=== PATIENT | female | born 1985 | race Caucasian/White ===

== ENCOUNTER → 2018-08-20 | Outpatient (CLI) | payer OTHER ==
[2018-08-20 13:14] LABS: BASO % 0.3 % (0.0-1.0); EOS # 0.1 10^3/uL (0.0-0.50); EOS % 1.5 % (0.0-3.0); HEMATOCRIT 37.8 % (36.0-47.0); HEMOGLOBIN 12.8 g/dl (12.0-15.5); IMMATURE GRANULOCYTE % 0.1 % (0-3.0); LYMPH # 2.3 10^3/uL (1.5-4.5); LYMPH % 31.9 % (24.0-44.0); MEAN CORPUSCULAR HEMOGLOBIN 30.9 pg (27.0-33.0); MEAN CORPUSCULAR HGB CONC 33.9 g/dl (32.0-36.5); MEAN CORPUSCULAR VOLUME 91.3 fl (80.0-96.0); MONO # 0.4 10^3/uL (0.0-0.8); MONO % 5.7 % (0.0-5.0); NEUTROPHILS # 4.4 10^3/uL (1.8-7.7); NEUTROPHILS % 60.5 % (36.0-66.0); PLATELET COUNT, AUTOMATED 277 10^3/uL (150-450); RED BLOOD COUNT 4.14 10^6/uL (4.00-5.40); RED CELL DISTRIBUTION WIDTH 11.9 % (11.5-14.5); WHITE BLOOD COUNT 7.3 10^3/uL (4.0-10.0)
[2018-08-20 14:30] LABS: HBsAg Prenatal NEGATIVE (NEGATIVE); HIV 1&2 SCREEN CENTAUR NEGATIVE (NEGATIVE); RUBELLA IgG QUALITATIVE IMMUNE (IMMUNE)
[2018-08-20 14:31] LABS: HEPATITIS C VIRUS ABY INDEX 8.7 INDEX (<0.8)
[2018-08-20 15:02] LABS: CHLAMYDIA DNA AMPLIFICATION NEGATIVE (NEGATIVE); GC DNA AMPLIFICATION NEGATIVE (NEGATIVE)
[2018-08-25 00:07] LABS: HCV RNA NAA QUALITATIVE Negative (Negative)
== END ==
LOC: M SMT 09:01
DX: Z36.89 Encounter for other specified antenatal screening (principal); Z3A.12 12 weeks gestation of pregnancy
CPT/HCPCS: 86762

== ENCOUNTER → 2018-08-26 | Outpatient (CLI) | payer OTHER | LOC: M WHC 09:01 | DX: Z36.89 Encounter for other specified antenatal screening (principal); Z3A.14 14 weeks gestation of pregnancy | CPT/HCPCS: 76811 ==

== ENCOUNTER → 2018-08-26 | Outpatient (CLI) | payer OTHER ==
[2018-08-26 14:21] LABS: ALBUMIN 3.1 GM/DL (3.2-5.2); ALBUMIN/GLOBULIN RATIO 0.91 (1.00-1.93); ALKALINE PHOSPHATASE 41 U/L (45-117); ALT/SGPT 13 U/L (12-78); ANION GAP 6 MEQ/L (8-16); AST/SGOT 6 U/L (7-37); BILIRUBIN,TOTAL 0.3 MG/DL (0.2-1.0); BLOOD UREA NITROGEN 10 MG/DL (7-18); CALCIUM LEVEL 8.4 MG/DL (8.5-10.1); CARBON DIOXIDE LEVEL 29 MEQ/L (21-32); CHLORIDE LEVEL 105 MEQ/L (98-107); CREATININE FOR GFR 0.53 MG/DL (0.55-1.30); GLOMERULAR FILTRATION RATE > 60.0 (>60); GLUCOSE, FASTING 67 MG/DL (70-100); POTASSIUM SERUM 4.7 MEQ/L (3.5-5.1); SODIUM LEVEL 140 MEQ/L (136-145); TOTAL PROTEIN 6.5 GM/DL (6.4-8.2)
[2018-08-27 09:49] LABS: HEPATITIS B SURFACE ANTIBODY POSITIVE (POSITIVE)
[2018-08-31 14:07] LABS: ALPHA 2-MACROGLOBULIN 266 mg/dL (110-276); ALT 8 IU/L (0-40); APOLIPOPROTEIN A-1 222 mg/dL (116-209); FIBROSIS SCORE 0.03 (0.00-0.21); GGT 5 IU/L (0-60); HAPTOGLOBIN 88 mg/dL (34-200); HEPATITIS A IgG TOTAL Positive (Negative); HEPATITIS B CORE ANTIBODY IGG Negative (Negative); NECROINFLAM SCORE 0.01 (0.00-0.17); NECROINFLAMM GRADE A0-No activity (.); TOTAL BILIRUBIN 0.2 mg/dL (0.0-1.2)
== END ==
LOC: M SMT 08:29
DX: O98.419 Viral hepatitis complicating pregnancy, unspecified trimester (principal)
CPT/HCPCS: 82977

== ENCOUNTER → 2018-09-19 | Outpatient (REF) | payer OTHER ==
[2018-09-23 15:15] LABS: HPV HYBRID CAPTURE II Negative (Negative)
== END ==
LOC: M LAB REF 14:12
DX: Z12.4 Encounter for screening for malignant neoplasm of cervix (principal)

== ENCOUNTER → 2018-09-30 | Outpatient (CLI) | payer OTHER | LOC: M RAD 17:25 | DX: Z34.82 Encounter for supervision of other normal pregnancy, second trimester (principal); Z3A.18 18 weeks gestation of pregnancy | CPT/HCPCS: 76816 ==

== ENCOUNTER → 2018-10-28 | Outpatient (CLI) | payer OTHER ==
--- NOTE | 2018-10-29 07:20 | REP ---
Clinical: Anatomical evaluation. Comparison: 09/30/2018 . Findings: Examination demonstrates a single live intrauterine in breech presentation. motion is identified by technologist. Placenta is noted anterior and grade grade 1 without evidence for placenta previa or abruption. Amniotic fluid volume is normal. Cervix measures 4.4 cm in length and appears closed. No evidence for nuchal cord. Gestational age by LMP 22 weeks 5 days with KAREN 02/26/2019 . Gestational age by current measurements 22 weeks 6 days with KAREN 02/25/2019 . FHR equals 141 beats per minute. Estimated weight 606 grams ( 72nd percentile). Anatomical assessment demonstrates normal structures including choroid plexus, four-chamber heart/ventricular outflow tracts, kidneys, spine. Impression: Single live intrauterine in breech presentation demonstrating appropriate interval growth. In conjunction with prior examination anatomical assessment is complete and within normal limits. Electronically Signed by Jose Srivastava MD 10/29/2018 07:12 A
== END ==
LOC: M RAD 17:39
PROVIDERS: ATTEND Specialist
DX: O98.412 Viral hepatitis complicating pregnancy, second trimester (principal); O32.1XX0 Maternal care for breech presentation, not applicable or unspecified; Z3A.22 22 weeks gestation of pregnancy

== ENCOUNTER → 2018-12-29 | Outpatient (CLI) | payer OTHER ==
[2018-12-29 17:43] LABS: HEMATOCRIT 36.3 % (36.0-47.0); HEMOGLOBIN 12.2 g/dl (12.0-15.5); MEAN CORPUSCULAR HGB CONC 33.6 g/dl (32.0-36.5); MEAN CORPUSCULAR VOLUME 92.4 fl (80.0-96.0); PLATELET COUNT, AUTOMATED 253 10^3/uL (150-450); RED BLOOD COUNT 3.93 10^6/uL (4.00-5.40); WHITE BLOOD COUNT 10.2 10^3/uL (4.0-10.0)
== END ==
LOC: M SMT 14:37
PROVIDERS: ATTEND Advanced Practice Midwife
DX: Z36.89 Encounter for other specified antenatal screening (principal)

== ENCOUNTER → 2019-01-01 | Outpatient (CLI) | payer OTHER | LOC: M LAB 07:27 | PROVIDERS: ATTEND Pediatrics | DX: Z34.83 Encounter for supervision of other normal pregnancy, third trimester (principal) ==

== ENCOUNTER → 2019-01-27 | Outpatient (REF) | payer OTHER | LOC: M LAB REF 16:51 | PROVIDERS: ATTEND Advanced Practice Midwife | DX: O99.513 Diseases of the respiratory system complicating pregnancy, third trimester (principal); Z3A.00 Weeks of gestation of pregnancy not specified ==

== ENCOUNTER 2019-02-18 21:18 | Inpatient (IN) | payer OTHER ==
[~2019-02-18] VITALS: Ht 152.4 cm; Wt 78.1 kg
[2019-02-18 21:32] VITALS: BP 131/82
[2019-02-18 22:20] VITALS: BP 140/75
[2019-02-18 22:37] LABS: HEMATOCRIT 35.9 % (36.0-47.0); MEAN CORPUSCULAR HEMOGLOBIN 30.2 pg (27.0-33.0); MEAN CORPUSCULAR HGB CONC 33.4 g/dl (32.0-36.5); MEAN CORPUSCULAR VOLUME 90.2 fl (80.0-96.0); PLATELET COUNT, AUTOMATED 231 10^3/uL (150-450); RED BLOOD COUNT 3.98 10^6/uL (4.00-5.40); WHITE BLOOD COUNT 8.4 10^3/uL (4.0-10.0)
[2019-02-18] MEDS ORDERED: FENTANYL 2MCG/ML ROPIVACAINE 0.2% IN 0.9% NACL 100ML IVBAG As Ordered ONE (23:36)
[2019-02-18 23:52] VITALS: BP 139/83
[2019-02-18 23:59] VITALS: BP 124/81
[2019-02-19] VITALS (56 sets, daily range): BP systolic 93–163; BP diastolic 52–85
[2019-02-19] MEDS ORDERED: BUDESONIDE 180MCG INHALER (PULMICORT FLEXHALER) INH SCH (01:00)
[2019-02-19] MEDS ORDERED: OXYTOCIN DRIP 30 UNITS in APPROPRIATE DILUENT 1 EA IV SCH ×2 (01:00→20:30)
[2019-02-19] MEDS ORDERED: EPIDURAL/PCA KEYS XX PRN (01:15)
[2019-02-19] MEDS ORDERED: ePHEDrine SULFATE 25 MG/5 ML(5MG/ML) SYRINGE IV PRN (01:15)
[2019-02-19] MEDS ORDERED: LACTATED RINGER'S 1000 ML IV PRN (01:15)
[2019-02-19] MEDS ORDERED: REFRIGERATOR IV KEYS XX PRN (01:15)
[2019-02-19] MEDS ORDERED: NALOXONE INJ 0.4 MG/1 ML VIAL (J2310) IV PRN ×3 (01:15→19:18)
[2019-02-19] MEDS ORDERED: EPIDURAL COMMENT XX SCH (01:15)
[2019-02-19] MEDS: FENTANYL/ROPIVACAINE/NACL BAG 100 ML EPIDURAL SCH ×3 (01:15→17:21)
[2019-02-19] MEDS ORDERED: ONDANSETRON 4MG/2ML VIAL (J2405) IV PRN ×4 (01:15→20:30)
[2019-02-19] MEDS ORDERED: diphenhydrAMINE INJ 50MG/ML VIAL (J1200) IV PRN ×2 (01:15→19:18)
[2019-02-19] MEDS: LR 1,000 ML IV SCH ×4 (01:27→14:19)
--- NOTE | 2019-02-19 02:48 | NUR ---
PROGRESS NOTE S: Comfortable with epidural in place O: T98.6 F, P79,R 18, B/P106/57 FHR 135 with moderate variability, positive accelerations, no decelerations Contractions every 6 minutes. Pitocin at 4 mu/min SVE: deferred A: IUP at 39 weeks. FHR category I. P: Continue with IV pitocin for labor augmentation.
--- NOTE | 2019-02-19 06:48 | HPE ---
DATE OF ADMISSION: 02/18/2019 SUBJECTIVE: Effie is a 33-year-old 2, para 0-0-1-0 at 38-6/7 weeks gestation, estimated date of confinement (EDC) of 02/26/2019 based on last menstrual period and confirmed by first trimester ultrasound. She presents to labor and delivery today with a report of spontaneous rupture of membranes, clear odorless fluid at 1850 hours, with continued leakage. Following the rupture of membranes she reports contractions started and that they are about every 4-5 minutes. She does report some pink vaginal bleeding. The fetus has been active. Her care was initiated at [facility] in the first trimester. Her course was complicated by an initial positive hepatitis C that was noted to be a false positive. Her HCV, RNA, and AA qualitative is negative and there was no need for any iinfectious disease consult. PAST OBSTETRIC HISTORY: March 2016, 8 weeks, spontaneous miscarriage. OBSTETRIC LABS: O positive. Antibody screen negative. Rubella immune. VDRL nonreactive. Urine culture no growth. Hep B surface antigen negative. HIV negative. Hep C antibody nonreactive. Gonorrhea and chlamydia negative. She did not have genetic serum screening labs drawn. Gestational diabetes screening elevated at 153. Her 3 hour glucose tolerance test normal. Fasting 90, 1 hour 178, 2 hour 157 and 3 hour of 89. Her Group B Streptococcus (GBS) is negative. PAST MEDICAL HISTORY: Asthma. Ventolin inhaler as needed. HPV. Childhood varicella. SURGERIES: None. FAMILY HISTORY: Diabetes, heart disease, breast cancer. SOCIAL HISTORY: The patient is single however the father of the baby is at bedside. She is a nonsmoker. Denies alcohol and drug use. 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 ALLERGIES: No known drug allergies. CURRENT MEDICATIONS: - Ventolin inhaler as needed - Pulmicort inhaler on a regular basis. OBJECTIVE: Temperature 98.2, pulse 81, respirations 20, blood pressure is 131/82. She is alert and oriented times three. She does appear mildly uncomfortable with her contractions. heart rate is 140 with moderate variability, positive accelerations, no decelerations observed. Contractions are about every 3-6 minutes. They do palpate moderate. Her abdomen is gravid, cephalic presentation with an estimated weight of 7-1/2 pounds. Sterile spec exam: Positive Valsalva, positive pooling, positive Nitrazine and positive fern. Sterile vaginal exam 2 cm dilated, 90% effaced, -3 station, mid position, soft, positive scant bloody show. ASSESSMENT: Intrauterine at 38-6/7 weeks. heart rate category 1. Spontaneous rupture of membranes. Latent phase of labor. PLAN: Admit patient to labor and delivery. Routine labs. Saline lock. Out of bed ad doreen. Regular diet at this time. The patient will likely desire an epidural for her labor coping when she is more uncomfortable. Consider IV pitocin augmentation as needed. I did review all questions that the patient and her partner asked and I do anticipate continued labor progress and a spontaneous vaginal delivery. MTDD
--- NOTE | 2019-02-19 06:58 | NUR ---
PROGRESS NOTE S: Comfortable with epidural. Reports some increase in flatus and minimal rectal pressure O: B/P 131/85 FHR 140 with moderate variability, no accelerations, positive early decelerations Contractions are every 3-5 minutes. Pitocin at 8 mu/min SVE: deferred A: IUP at 39 weeks, FHR category I P: Continue to observe and IV pitocin augmentation. Anticipate .
--- NOTE | 2019-02-19 07:31 | NUR ---
PROGRESS NOTE SVE: 4/100/-1, molding noted. Reposition with peanut ball to encourage rotation. Pitocin at 8mu/min FHR 140 with moderate variability, no accels, positive early decelerations. Occasional variable deceleration Contractions every 2-4 minutes. Continue to observe
--- NOTE | 2019-02-19 11:57 | NUR ---
Progress Note Pt comfortable with epidural. Continuing to leak fluid. No VB. No SUAREZ, visual changes, RUQ pain, sob, cp, myalgias. Temp 101.0F, normotensive EFM: Cat I [place]: ctxs every 2-4 min; Pit at 10 mU/min A/P: IAI/Chorioamnionitis. Prolonged rupture of membranes. Reassuring status. -Start IV abx; Unasyn -Tylenol 1g PO -Repeat SVE in 2-4 hours Eva Oh DO
--- NOTE | 2019-02-19 12:11 | NUR ---
Addendum SVE: 6-7cm/100%/-1 Protracted labor thus far, despite active management Eva Oh DO
[2019-02-19] MEDS ORDERED: ACETAMINOPHEN 500 MG TAB PO ONE (12:15)
[2019-02-19] MEDS: AMPICILLIN SOD/SULBACTAM SOD 3 GM in D5W MINI-BAG PLUS 100 ML IV SCH ×2 (12:21→18:19)
--- NOTE | 2019-02-19 14:50 | NUR ---
Progress Note Pt feeling more lower pelvic pressure. VSS, Temp 100.4, normotensive SVE: 8/c/0 EFM: Cat I [employer]: ctxs every 3-5min A/P: Minimal cervical change. Reassuring maternal and status. -Repeat SVE in 2 hours. -Continue Marty Oh,
--- NOTE | 2019-02-19 17:58 | NUR ---
Progress Note Pt feeling more lower pelvic pressure. VSS, Temp 100.0, normotensive SVE: c/c/0 (see A/P) EFM: Cat I [place]: ctxs every 3-5min A/P: Second stage of labor. Reassuring maternal and status. -Maternal pushing efforts have started. Good effort, minimal descent. -Continue Pitocin and IV Unasyn Eva Oh, DO
[2019-02-19] MEDS ORDERED: OXYTOCIN INJ 10 UNITS/ML VIAL (J2590) As Ordered ONE ×3 (18:22→19:36)
[2019-02-19] MEDS ORDERED: ePHEDrine SULFATE 25 MG/5 ML(5MG/ML) SYRINGE As Ordered ONE (18:22)
[2019-02-19] MEDS ORDERED: PHENYLephrine HCL 500 MCG/5 ML (100MCG/ML) SYRINGE (J2370) As Ordered ONE (18:22)
[2019-02-19] MEDS ORDERED: LIDOCAINE PRES-FREE 2% 10ML AMP As Ordered ONE (18:22)
[2019-02-19] MEDS ORDERED: AZITHROMYCIN INJ 500MG VIAL (J0456) As Ordered ONE (18:24)
[2019-02-19] MEDS ORDERED: BICITRA 30ML SOLN UDC As Ordered ONE (18:25)
--- NOTE | 2019-02-19 18:25 | NUR ---
Progress Note SVE: c/c/0 Adequate maternal pushing effort without any descent of presenting verted FHR: Cat II. tachycardia with min to moderate variability, no decels. +accels IAI/Chorio. Arrest of descent / CPD. Non-reassuring heart rate tracing (Cat II). -Recommended PLTCS and patient agreed to proceed with this plan. -Preparations for the OR being made. Eva Oh, DO
[2019-02-19] MEDS ORDERED: BICITRA 30ML SOLN UDC PO ONE (18:30)
[2019-02-19] MEDS ORDERED: AZITHROMYCIN INJ 500 MG, VIAL MATE ADAPTER 1 EACH in D5W 250 ML IV ONE (18:30)
[2019-02-19] MEDS ORDERED: PROPOFOL 200 MG/20 ML VIAL As Ordered ONE ×2 (19:11→19:24)
[2019-02-19] MEDS ORDERED: MIDAZOLAM INJ 2 MG/2 ML VIAL (J2250) As Ordered ONE (19:11)
[2019-02-19] MEDS ORDERED: MORPHINE PRES-FREE INJ 10 MG/10 ML VIAL (J2274) As Ordered ONE (19:15)
[2019-02-19] MEDS ORDERED: NALBUPHINE HCL 10 MG/ML AMP (J2300) IV PRN (19:18)
[2019-02-19] MEDS ORDERED: METOCLOPRAMIDE INJ 10MG/2ML VIAL (J2765) IV PRN ×2 (19:18→20:30)
[2019-02-19 19:24] LABS: CORD GAS ABE A -5.1; CORD GAS HCO3 A 21.6 MEQ/L; CORD GAS O2 SAT A 27.6 %; CORD GAS PCO2 A 45.8 mmHg; CORD GAS PH A 7.291 UNITS; CORD GAS PO2 A 14.9 mmHg; CORD GAS SBC A 18.7 MEQ/L
[2019-02-19] MEDS ORDERED: ONDANSETRON 4MG/2ML VIAL (J2405) As Ordered ONE ×2 (19:24→20:10)
[2019-02-19 19:25] LABS: CORD GAS ABE V -1.4; CORD GAS HCO3 V 25.4 MEQ/L; CORD GAS O2 SAT V 46.4 %; CORD GAS PCO2 V 50.3 mmHg; CORD GAS PH V 7.321 UNITS; CORD GAS PO2 V 20.6 mmHg; CORD GAS TCO2 V 26.9 MEQ/L
--- NOTE | 2019-02-19 20:09 | NUR ---
Operative Note Date of procedure: 02/19/2019 Procedure: Primary low-transverse section Anesthesia: Epidural Preoperative diagnosis: 39+0 weeks gestation Prolonged rupture of membranes with intrauterine amniotic infection/chorioamnionitis Arrest of descent in the second stage of labor Category 2 heart rate tracing Postoperative diagnosis: Same as preoperative Indication: Arrest of descent in the second stage of labor Primary surgeon: Johny Oh D.O., Kenna Marquez Nylon Machine Operator: None Estimated blood loss: 700 ml IV fluids administered: 1600 ml crystalloid Drains: Loaiza catheter. Urine output: 150 ml [place] data: Apgars 9 and 9. Birthweight, 3284 g, 7 lbs. 4 oz. Female. Preoperative/prophylactic antibiotics: Ancef 2 g IV (given within 30 minutes prior to surgical start time). Intraoperative findings: Occiput posterior/asynclitic presentation. Normal uterus and bilateral adnexa/ovaries. Specimen(s): Placenta Procedure: The patient was counseled and consented on the risks, benefits, indications and alternatives of the procedure. Informed consent was obtained and placed in the c moss. She was taken to the operating room with an IV running. She was placed on the operating table. Epidural anesthesia was administered without any difficulty and found to be adequate. She was placed in the dorsal supine position with a leftward tilt. Sequential compression devices were placed on the lower extremities. A Loaiza catheter had been placed under sterile conditions prior to arrival to the operating room. She was sterilely prepped and draped. A surgical time out was performed per protocol. Epidural anesthesia was again found to be adequate. Using the 10 blade a Pfannenstiel incision was performed. The 10 blade was used to dissect down to the level of the rectus sheath fascia. The rectus sheath fas radha was incised at the midline, and the fascial incision was extended with Dominguez scissors. Angela clamps were used to grasp the superior and inferior aspect of the fascial incision and the rectus muscle bellies were dissected off sharply and bluntly. The midline was identified and the rectus muscle bellies were manually . The peritoneum was identified and clamped with hemostats and elevated. The peritoneum was then incised with Metzenbaum scissors. Entry into the intraperitoneal cavity was achieved. The peritoneal opening was extended with manual stretch . There was good visualization of both the bladder and the lower uterine segment. The Mobius retractor was placed. The vesicouterine peritoneum was dissected with Metzenbaum scissors and blunt dissection. A low transverse uterine incision was made with a new 10 blade. The hysterotomy was extended with manual stretch. The amniotic sac was protruding and then artificially ruptured. Clear amniotic fluid was noted. The baby's head delivered through the hysterotomy with ease. The remainder of the body delivered with ease. The cord was doubly clamped and cut and the baby was handed off to awaiting care. See data above. Cord blood was obtained.. Gases were obtained. The placenta was manually removed and noted to be fully intact. The uterus was kept in situ. The intrauterine cavity was cleared of all clot and debris with a laparotomy sponge. The hysterotomy was closed with 0 Vicryl in running, locked fashion. A second imbricating closure was performed over the initial layer closure using 0 Vicryl, The hysterotomy was noted to be hemostatic. The posterior cul-de-sac was irrigated and cleared of all clot and debris. The uterus was replaced back into the abdomen. The paracolic gutters were cleared of all clot and debris with damp laparotomy sponges. The hysterotomy is reinspected and noted to be hemostatic. Sponge, needle and instrument counts were correct. The peritoneum was closed with 3-0 Vicryl in running fashion. The rectus muscle bellies were reapproximated with 3-0 Vicryl with a series of interrupted sutures. The rectus muscle bellies were noted to be hemostatic. The fascia was closed with 0 Vicryl in running fashion. Sponge, needle and instrument counts were again correct. The subcutaneous layer was irrigated. Small subcutaneous bleeders were cauterized with Bovie. The subcutaneous layer was reapproximated with 3-0 Vicryl in running fashion. The skin was closed with 3-0 Monocryl in subcuticular fashion. A bandage was placed over the closed incision. The final sponge, instrument and needle count was correct. She tolerated the entire procedure very well. She was transferred to the PACU in good and stable condition. Dr. Johny Oh D.O., [email or web address]
[2019-02-19] MEDS ORDERED: fentaNYL 100 MCG/2 ML INJECTION (J3010) As Ordered ONE ×2 (20:10→20:46)
[2019-02-19] MEDS ORDERED: RHOGAM 300 MCG (1500 IU) INJ (J2790) IM SCH (20:15)
[2019-02-19] MEDS ORDERED: PROMETHAZINE 25 MG TAB PO PRN (20:15)
[2019-02-19] MEDS ORDERED: MEASLES,MUMPS,RUBELLA VACCINE INJ (MMR-II) (90707) SC SCH (20:15)
[2019-02-19] MEDS ORDERED: KETOROLAC 30 MG/ML VIAL (J1885) IV PRN (20:30)
[2019-02-19] MEDS ORDERED: fentaNYL 100 MCG/2 ML INJECTION (J3010) IV PRN (20:30)
[2019-02-19] MEDS ORDERED: PERCOCET 5MG/325MG TAB PO PRN (20:30)
[2019-02-19] MEDS: DOCUSATE SODIUM 100 MG CAP PO SCH (21:00)
[2019-02-19] MEDS ORDERED: KETOROLAC 30 MG/ML VIAL (J1885) As Ordered ONE (21:11)
[2019-02-19] MEDS: PERCOCET 5MG/325MG TAB PO PRN (23:25)
[2019-02-20] VITALS (7 sets, daily range): BP systolic 104–119; BP diastolic 54–71
[2019-02-20] MEDS: AMPICILLIN SOD/SULBACTAM SOD 3 GM in D5W MINI-BAG PLUS 100 ML IV SCH ×4 (01:15→18:52)
[2019-02-20] MEDS: KETOROLAC 30 MG/ML VIAL (J1885) IV SCH ×3 (03:17→15:08)
[2019-02-20] MEDS: PERCOCET 5MG/325MG TAB PO PRN ×4 (06:51→21:55)
--- NOTE | 2019-02-20 06:56 | NUR ---
POD#1 s/p PLTCS for arrest of descent also c/b IAI/chorio S: Pain well controlled, ambulating without difficulty, Loaiza recently removed, lochia decreasing/minimal, tolerating PO. Baby in NICU, doing well. O: VSS, normotensive, normal HR, afebrile H: RRR no m/g/r L: CTA b/l no w/c/r/r Abd: soft,nt,nd, uterine fundus firm at U-2cm and appropriately tender Incision bandage not soaked through Ext: no c/c/e; SCD's on preop h/h: 12.0/35.9 postop h/h: 10.1/30.2 A/P: POD#1. Recovering appropriately. HDS/afebrile/good pain control. -Routine postoperative/ care and advancement -Continue Unasyn 3g IV q6h until AM of POD#2. Eva Oh DO
[2019-02-20 07:39] LABS: HEMATOCRIT 30.2 % (36.0-47.0); HEMOGLOBIN 10.1 g/dl (12.0-15.5); MEAN CORPUSCULAR HEMOGLOBIN 30.8 pg (27.0-33.0); MEAN CORPUSCULAR HGB CONC 33.4 g/dl (32.0-36.5); MEAN CORPUSCULAR VOLUME 92.1 fl (80.0-96.0); PLATELET COUNT, AUTOMATED 188 10^3/uL (150-450); RED BLOOD COUNT 3.28 10^6/uL (4.00-5.40); WHITE BLOOD COUNT 11.1 10^3/uL (4.0-10.0)
[2019-02-20] MEDS ORDERED: OXYC1TAB23 PO (08:20)
[2019-02-20] MEDS ORDERED: IBUP80TA PO (08:22)
[2019-02-20] MEDS: DOCUSATE SODIUM 100 MG CAP PO SCH ×2 (09:00→21:54)
[2019-02-20] MEDS: PRENATAL VITAMINS CHEWABLE TABLET PO SCH (09:00)
[2019-02-20] MEDS: LR 1,000 ML IV SCH (12:30)
[2019-02-20] MEDS: IBUPROFEN 800 MG TAB PO SCH (23:10)
[2019-02-21] MEDS: AMPICILLIN SOD/SULBACTAM SOD 3 GM in D5W MINI-BAG PLUS 100 ML IV SCH ×2 (01:11→06:52)
[2019-02-21 02:00] VITALS: BP 112/65
[2019-02-21] MEDS: PERCOCET 5MG/325MG TAB PO PRN ×5 (03:58→22:37)
[2019-02-21 05:23] VITALS: BP 116/62
[2019-02-21] MEDS: IBUPROFEN 800 MG TAB PO SCH ×3 (06:51→22:36)
--- NOTE | 2019-02-21 07:00 | IPNPDOC ---
Text Note Date of Service The patient was seen on 02/21/19. NOTE PO #2 Feels well, adequate pain management. Voiding VSS, afebrile, normotensive Breasts soft, nipples intact Fundus firm, NT Dressing intact Lochia rubra scant without odor PO #2 Routine care. Anticipate D/C in am VS,Fishbone, I+O VS, Fishbone, I+O Laboratory Tests 02/20/19 07:05 Red Blood Count 3.28 L, Mean Corpuscular Volume 92.1, Mean Corpuscular Hemoglobin 30.8, Mean Corpuscular Hemoglobin Concent 33.4, Red Cell Distribution Width 12.5 Vital Signs Date Time Temp Pulse Resp B/P (MAP) Pulse Ox O2 Delivery O2 Flow Rate FiO2 02/21/19 05:23 98.1 86 16 116/62 (80) 02/20/19 10:05 100 I&O- Last 24 Hours up to 6 AM 02/21/19 06:00 Output Total 2025 ml Balance -2025 ml Leana Fu CNM Feb 21, 2019 07:00
[2019-02-21] MEDS: PRENATAL VITAMINS CHEWABLE TABLET PO SCH (08:47)
[2019-02-21] MEDS: DOCUSATE SODIUM 100 MG CAP PO SCH ×2 (08:47→21:35)
[2019-02-21 18:22] VITALS: BP 129/73
[2019-02-22] MEDS: PERCOCET 5MG/325MG TAB PO PRN (03:47)
[2019-02-22 06:00] VITALS: BP 123/65
[2019-02-22] MEDS: DOCUSATE SODIUM 100 MG CAP PO SCH (07:41)
[2019-02-22] MEDS: IBUPROFEN 800 MG TAB PO SCH (07:41)
[2019-02-22] MEDS: PRENATAL VITAMINS CHEWABLE TABLET PO SCH (07:41)
[2019-02-22] MEDS ORDERED: PRENTAB9 PO (11:49)
--- NOTE | 2019-02-23 07:40 | DSES ---
DATE OF ADMISSION: 02/18/2019 DATE OF DISCHARGE: 02/22/2019 33-year-old 2, para 2 female at 38-6/7 weeks gestation presents with spontaneous rupture of membranes. She began to contract every 4-5 minutes. She presented to the hospital course. HOSPITAL COURSE: The patient was admitted on 02/18/2019 for early labor with spontaneous rupture of membranes that were confirmed. She made slow progress in labor over the next day and a half. She was subsequently diagnosed with arrest of descent as well as tachycardia and possible chorioamnionitis. On 02/19/2019 she underwent a primary low transverse section by Dr. Oh for a 7 pound 4 ounce female infant. There were no complications. Postoperative course was unremarkable. She had adequate return of bladder and bowel function. Postoperative hemoglobin was 10.1 g/dL. The baby was observed in the intensive-care unit (NICU) for suspected chorioamnionitis, and the baby did very well. The patient was deemed stable for discharge on postop day number 3. ADMISSION DIAGNOSIS: at term, labor. DISCHARGE DIAGNOSIS: Delivered. PROCEDURE: Primary low transverse section. DISPOSITION: Patient will follow-up with Dr. Oh in two weeks. Instructions were reviewed.
== END 2019-02-22 12:00 | disposition home or self-care (01) | DRG 540 ==
LOC: M LDO 21:18 → M LDI 21:58 → M OBS 02-19 22:53
PROVIDERS: ADMIT Advanced Practice Midwife; ATTEND Advanced Practice Midwife
PROC: 10D00Z1 Extraction of Products of Conception, Low, Open Approach (ICD-10-PCS; principal; 2019-02-19 18:58)
DX: O41.1230 Chorioamnionitis, third trimester, not applicable or unspecified (principal); O64.0XX0 Obstructed labor due to incomplete rotation of fetal head, not applicable or unspecified; O32.4XX0 Maternal care for high head at term, not applicable or unspecified; Z37.0 Single live birth; Z3A.38 38 weeks gestation of pregnancy; O42.12 Full-term premature rupture of membranes, onset of labor more than 24 hours following rupture